=== PATIENT | male | born 1965 | race Two or more races ===

== ENCOUNTER 2019-01-22 09:20 | Day surgery (SDC) | payer OTHER ==
[2019-01-22] VITALS (17 sets, daily range): BP systolic 106–133; BP diastolic 66–86
--- NOTE | 2019-01-22 09:30 | NUR ---
pt in the hospital for cardioversion, a/o x4, follows commands, A fib controlled, RA, sat well, BRP, v/s stable, no pain, pt resting in the bed, consent signed, awaiting for anesthesiologist.
[2019-01-22] MEDS ORDERED: MONT10TA22 PO (10:08)
[2019-01-22] MEDS ORDERED: ALBU18HF2 IH (10:08)
[2019-01-22] MEDS ORDERED: CARV3.12 PO (10:08)
[2019-01-22] MEDS ORDERED: ASPI-605 PO (10:08)
[2019-01-22] MEDS ORDERED: ESCI10TA PO (10:08)
[2019-01-22] MEDS ORDERED: ATOR20TA PO (10:08)
[2019-01-22] MEDS ORDERED: APIX2.5T PO (10:08)
[2019-01-22] MEDS ORDERED: DONE10TA44 PO (10:08)
[2019-01-22] MEDS ORDERED: CALC667C6 PO (10:08)
[2019-01-22] MEDS ORDERED: VALS320T2 PO (10:08)
[2019-01-22] MEDS ORDERED: MEMA10TA PO (10:08)
[2019-01-22] MEDS ORDERED: DIVA500T4 PO (10:08)
[2019-01-22] MEDS ORDERED: QUET100T PO (10:08)
[2019-01-22] MEDS ORDERED: FURO-144 PO ×2 (10:08→10:18)
[2019-01-22] MEDS ORDERED: LEVO75TA7 PO (10:08)
[2019-01-22] MEDS ORDERED: ERGO500040 PO (10:08)
[2019-01-22] MEDS ORDERED: RIVA10TA PO (10:18)
[2019-01-22] MEDS ORDERED: METO-358 PO (10:18)
[2019-01-22] MEDS ORDERED: DIGO250T PO (10:18)
[2019-01-22] MEDS ORDERED: LISI-607 PO (10:18)
[2019-01-22] MEDS ORDERED: DILT240C2 PO (10:18)
[2019-01-22] MEDS ORDERED: ANESTHESIA TRAY IN PYXIS 1 EA TRAY MC ONE (11:50)
--- NOTE | 2019-01-22 12:05 | NUR ---
Successful cardioversion, pt is back to NSR, v/s stable, no pain.
--- NOTE | 2019-01-22 12:32 | NUR ---
pt still little drowsy s/t anesthesia, v/s stable, no pain.
--- NOTE | 2019-01-22 14:20 | NUR ---
patient discharged home accompanied by his daughter, a/o x4, follows commands, NSR, D/C instructions given, patient verbalized understanding.
== END 2019-01-22 14:15 | disposition home or self-care (01) ==
LOC: DS 09:20 → ICU 09:28 → UNDOADMIN 09:28 → UNDODISIN 14:15 → DS 14:15
PROVIDERS: ATTEND Internal Medicine Cardiovascular Disease
DX: I48.2 Chronic atrial fibrillation (principal); K21.9 Gastro-esophageal reflux disease without esophagitis; Z79.899 Other long term (current) drug therapy
CPT/HCPCS: 92960; J2704; G0378